=== PATIENT | female | born 1950 | race African-American/Black ===

== ENCOUNTER 2022-10-06 14:30 | Emergency (ER) | payer OTHER ==
[~2022-10-06] VITALS: Ht 170.2 cm; Wt 68.0 kg
[~2022-10-06 14:30] MED LIST: AMLO-213 PO
[2022-10-06] MEDS ORDERED: ONDANSETRON HCL/PF 4 MG/2 ML VIAL IVP ONE (15:00)
[2022-10-06] MEDS ORDERED: ONDANSETRON HCL/PF 4 MG/2 ML VIAL ONE (15:18)
--- NOTE | 2022-10-06 15:21 | NUR ---
20g R AC IV placed. Labs collected, line flushed. Pt tolerated well
[2022-10-06 15:46] LABS: CALCIUM, SERUM 9.5 mg/dL (8.5-10.1); CARBON DIOXIDE 27 mmol/L (21-32); CHLORIDE 99 mmol/L (98-107); CREATININE 0.8 mg/dL (0.6-1.3); GLUCOSE 130 mg/dL (74-106); POTASSIUM 3.4 mmol/L (3.5-5.1); SODIUM SERUM 137 mmol/L (136-145); UREA NITROGEN, BLOOD 9 mg/dL (7-18)
[2022-10-06 15:57] LABS: BASOPHILS % (AUTO) 0.8 % (0.0-2.0); EOSINOPHILS % (AUTO) 0.4 % (0.0-6.0); HEMATOCRIT 43 % (33-45); HEMOGLOBIN 13.9 g/dL (11.5-14.8); LYMPHOCYTES # (AUTO) 0.9 K/uL (0.8-4.8); LYMPHOCYTES % (AUTO) 22.6 % (20.0-44.0); MEAN CORPUSCULAR HGB CONC 32 g/dl (31.0-36.0); MEAN CORPUSCULAR VOLUME 88 fL (82-100); MONOCYTES # (AUTO) 0.2 K/uL (0.1-1.30); MONOCYTES % (AUTO) 6.1 % (2.0-12.0); NEUTROPHILS # (AUTO) 2.8 K/uL (1.8-8.9); NEUTROPHILS % (AUTO) 70.1 % (43.0-81.0); PLATELET COUNT (AUTO) 433 K/uL (150-450); RED BLOOD CELL COUNT(AUTO) 4.87 MIL/uL (4.0-5.2)
[2022-10-06] MEDS ORDERED: AMLODIPINE BESYLATE 5 MG TABLET PO ONE (16:00)
[2022-10-06] MEDS ORDERED: AMLODIPINE BESYLATE 10 MG TABLET ONE (16:03)
--- NOTE | 2022-10-06 16:24 | NUR ---
PT IN BED 12 BREATHING EVEN AND UNLABORED 98%ROOM AIR A/O X4. C/O DIZZY ADN FEELING NAUSEAOUS. FOR 3 DAYS 1X VOMIT TODAY. Hx OF HTN. IN BED HIGH SAUL KELLEY LOCKED SIDE RAILS UP.
[2022-10-06] MEDS ORDERED: CLON0.1T PO (16:37)
[2022-10-06] MEDS ORDERED: ONDA4TAB11 PO (16:37)
[2022-10-06 17:01] VITALS: BP 139/78
== END 2022-10-06 17:02 | disposition home or self-care (01) ==
LOC: ER 14:37
DX: I10 Essential (primary) hypertension (principal); R11.0 Nausea; R51.9 Headache, unspecified; R42 Dizziness and giddiness; Z88.8 Allergy status to other drugs, medicaments and biological substances
CPT/HCPCS: 99285; 96374; 70450; 71045; 93005; 85025; 80048; 36415; 84484; J2405